=== PATIENT | male | born 1960 | race African-American/Black ===

== ENCOUNTER 2021-08-14 17:47 | Emergency (ER) | payer OTHER ==
[2021-08-14] MEDS ORDERED: Ketorolac Tromethamine 30 MG/ML VIAL ONE (18:22)
== END 2021-08-14 18:23 | disposition home or self-care (01) ==
LOC: CSHERS 17:47
DX: K02.9 Dental caries, unspecified (principal); E11.9 Type 2 diabetes mellitus without complications
CPT/HCPCS: 96372; 99282; J1885

== ENCOUNTER 2023-06-15 20:01 | Emergency (ER) | payer OTHER ==
[2023-06-15] MEDS ORDERED: Ketorolac Tromethamine 30 MG/ML VIAL ONE (20:30)
== END 2023-06-15 21:18 | disposition home or self-care (01) ==
LOC: CSHERS 20:01
DX: M25.561 Pain in right knee (principal); E11.9 Type 2 diabetes mellitus without complications; F17.210 Nicotine dependence, cigarettes, uncomplicated; W18.30XA Fall on same level, unspecified, initial encounter; Y92.69 Other specified industrial and construction area as the place of occurrence of the external cause
CPT/HCPCS: 96372; J1885

== ENCOUNTER 2024-09-08 15:50 | Emergency (ER) | payer OTHER ==
[2024-09-08] MEDS ORDERED: Ibuprofen 800 MG TAB ONE (16:53)
[2024-09-08] MEDS ORDERED: HYDROcodone/Acetaminophen 5/325 mg Tablet ONE (16:53)
== END 2024-09-08 18:27 | disposition home or self-care (01) ==
LOC: CSHERS 15:50
DX: S29.012A Strain of muscle and tendon of back wall of thorax, initial encounter (principal); E11.9 Type 2 diabetes mellitus without complications; F17.290 Nicotine dependence, other tobacco product, uncomplicated; X50.0XXA Overexertion from strenuous movement or load, initial encounter
CPT/HCPCS: 99283